=== PATIENT | male | born 1985 | race Caucasian/White ===

== ENCOUNTER 2020-05-21 18:22 | Emergency (ER) | payer OTHER ==
[~2020-05-21] VITALS: Ht 188 cm; Wt 84.0 kg
[2020-05-21 19:45] VITALS: BP 130/82
== END 2020-05-21 19:45 | disposition home or self-care (01) ==
LOC: ER 18:22
DX: S43.004A Unspecified dislocation of right shoulder joint, initial encounter (principal); X50.0XXA Overexertion from strenuous movement or load, initial encounter; Y93.B1 Activity, exercise machines primarily for muscle strengthening; Y92.9 Unspecified place or not applicable
CPT/HCPCS: 23650; 99284; A4565; L3670